=== PATIENT | female | born 1960 | race Caucasian/White ===

== ENCOUNTER → 2023-12-06 11:04 | Outpatient (REF) | payer OTHER, SELFPAY | LOC: HWWDC 11:04 | PROVIDERS: ATTENDING PHYSICIAN Nurse Practitioner Adult Health; FAMILY PHYSICIAN Physician Assistant Medical | DX: Z12.31 Encounter for screening mammogram for malignant neoplasm of breast (principal) | CPT/HCPCS: 77063; 77067 ==

== ENCOUNTER → 2025-04-01 09:39 | Outpatient (REF) | payer MEDICARE, SELFPAY | LOC: HWWDC 09:39 | PROVIDERS: ATTENDING PHYSICIAN Nurse Practitioner Adult Health; FAMILY PHYSICIAN Family Medicine | DX: Z12.31 Encounter for screening mammogram for malignant neoplasm of breast (principal) | CPT/HCPCS: 77063; 77067 ==